=== PATIENT | female | born 1990 | race African-American/Black ===

== ENCOUNTER 2019-11-25 22:07 | Observation (INO) | payer OTHER, SELFPAY ==
[2019-11-25 22:29] VITALS: BMI 34.8
[2019-11-25 22:30] VITALS: BP 124/66; PULSE 101
--- NOTE | 2019-11-25 22:32 | OBADM ---
This patient, Kely Lott, admitted to the OB room OB Post 117 for observation. Patient/family oriented to hospital policies and general routines including ID bracelet, bed and alarms, visiting hours, pain management, procedures, bathroom and other care routines, personal items, smoking policy, room service/diet, and visiting hours. Patient/Family are encouraged to report perceived risks to care and to ask questions if they do not understand what they are told or what they should do.
[2019-11-25 22:42] VITALS: TEMP 37.1
[2019-11-26] MEDS: TERBUTALINE SULFATE 1 MG/ML VIAL 0.25 MG SUB-Q (00:06)
[2019-11-26 00:45] LABS: Add Urine Microscopic? YES; Appearance Urine Clear (Clear); Bilirubin Urine Negative (Negative); Blood Urine 1+ (Negative); Color Urine Yellow (Yellow); Glucose Urine UA 3+ mg/dL (Negative); Ketones Urine Trace mg/dL (Negative); Leukocyte Esterase Ur Trace LEU/UL (NEGATIVE); Mucus Urine Rare /lpf; Nitrate Urine Negative (Negative); Protein Urine 1+ mg/dL (Negative); RBC Urine 0-2 /hpf (0-2); Squamous Epithelial Cell Urine Occasional /hpf (Few); Urobilinogen Urine Negative mg/dL (<2.0); WBC Urine 0-3 /hpf (0-3)
--- NOTE | 2019-11-28 12:16 | P.PNOB_ITS ---
OB - Triage/Final Diagnosis Evaluation Laboratory results: Laboratory Tests 11/26/19 00:09 Urine Color Yellow Urine Appearance Clear Urine pH 6.0 Ur Specific Ramsey 1.010 Urine Protein 1+ H Urine Glucose (UA) 3+ H Urine Ketones Trace Ur Blood (Man) 1+ H Urine Nitrate Negative Urine Bilirubin Negative Urine Urobilinogen Negative Ur Leukocyte Esterase Trace H Urine RBC 0-2 Urine WBC 0-3 Ur Squamous Epith Cells Occasional Urine Mucus Rare Final Diagnosis (1) contractions: Code(s): O47.9 - False labor, unspecified Status: Acute
== END 2019-11-26 02:10 | disposition home or self-care (01) ==
PROVIDERS: Admitting Provider Obstetrics & Gynecology; Visit Provider Obstetrics & Gynecology
DX: O47.03 False labor before 37 completed weeks of gestation, third trimester (principal); Z3A.34 34 weeks gestation of pregnancy
CPT/HCPCS: 81001; 87086; 87088; 96372; G0378; G0379; J3105

== ENCOUNTER 2019-12-20 12:30 | Outpatient (CLI) | payer OTHER, SELFPAY ==
[2019-12-20 13:15] VITALS: BP 122/61; PULSE 101
[2019-12-20 13:18] LABS: Basophils Percent Auto 0.1 % (0.2-1.2); Eosinophils Percent Auto 0.4 % (0-4.4); Hemoglobin 10.5 g/dL (12.0-15.0); Immature Granulocyte Absolute 0.05 K/mm3 (0.00-0.031); Immature Granulocyte Percent A 0.7 % (0-0.5); Lymphocytes Absolute Auto 1.48 K/mm3 (0.9-3.2); Lymphocytes Percent Auto 19.5 % (18.3-44.2); Mean Corpuscular HGB Conc 31.8 g/dl (32-36); Mean Corpuscular Hemoglobin 28.2 pg (26-34); Mean Corpuscular Volume 88.5 fl (80-100); Mean Platelet Volume 10.7 fl (7.4-10.4); Monocytes Absolute Auto 0.5 K/mm3 (0.1-0.6); Monocytes Percent Auto 6.5 % (2.6-8.5); Neutrophils Absolute Auto 5.5 K/mm3 (1.3-6.7); Neutrophils Percent Auto 72.8 % (45.5-73.1); Platelet Count Result 178 k/mm3 (150-375); Red Blood Count 3.73 M/mm3 (4.2-5.4); Red Cell Distribution Width 13.8 % (11.5-14.5); White Blood Count 7.6 K/mm3 (4.5-10.0)
[2019-12-20 13:30] VITALS: BP 124/76; PULSE 92
[2019-12-20 13:30] LABS: Alanine Aminotransferase 11 U/L (4-35); Albumin Level 3.3 g/dL (3.5-5.1); Alkaline Phosphatase 105 U/L (38-126); Aspartate Amino Transferase 18 U/L (14-36); Bilirubin,Total 0.2 mg/dL (0.2-1.3); Blood Urea Nitrogen 4 mg/dL (7-17); Calcium 8.7 mg/dL (8.4-10.2); Carbon Dioxide 22 mmol/L (22-30); Chloride 104 mmol/L (98-107); Estimated Glomerular Filt Rate > 60; Glucose 92 mg/dL (65-105); Potassium 3.5 mmol/L (3.4-5.0); Sodium 136 mmol/L (137-145); Uric Acid 3.2 mg/dL (2.5-7.5)
[2019-12-20 13:31] LABS: Creatinine Urine 60.9 mg/dL; Total Protein Urine Random 36 mg/dL
[2019-12-20 13:46] VITALS: BP 128/75; PULSE 92
[2019-12-20 14:00] VITALS: BP 141/74; PULSE 92
[2019-12-20 14:11] VITALS: PULSE 83
[2019-12-20 14:15] VITALS: BP 120/77; PULSE 88
--- NOTE | 2019-12-20 14:20 | PC.NURSE ---
Dr. Prado at bedside to discuss plan of care with pt. Lab results reviewed. February D/C home.
--- NOTE | 2019-12-20 14:27 | PM.IMHP ---
H&P: HPI History of Present Illness Chief complaint: [facility] Narrative: Kely Lott is a 29 year old female. She is multiparous. She has a history of preeclampsia. She had some questionable blood pressures in the office today. She was sent over for monitoring and laboratory work. She denies any headache, blurry vision, epigastric pain. She denies any loss of fluid or vaginal bleeding. She denies any contractions. She denies any nausea, vomiting, fever, chills. She denies any chest pain shortness of breath. Review of Systems Constitutional: Constitutional: Reports no additional constitutional complaints, Denies fatigue, Denies headache(s), Denies lethargy and Denies weakness Eyes: Eyes: Reports no additional eye complaints, Denies blurry vision and Denies photophobia ENT: Reports as per HPI, Denies headache(s) and Denies neck pain Cardiovascular: Cardiovascular: Denies chest pain, Denies diaphoresis, Denies leg edema, Denies palpitations and Denies dyspnea Respiratory: Respiratory: Denies hemoptysis, Denies dyspnea and Denies wheezing Gastrointestinal: Gastrointestinal: Denies abdominal pain, Denies melena, Denies bloating, Denies hematochezia, Denies nausea and Denies vomiting Genitourinary: Genitourinary: Reports no additional female genitourinary complaints Musculoskeletal: Musculoskeletal: Denies joint swelling, Denies neck pain, Denies numbness and Denies stiffness Neurologic: Denies Abnormal speech present, Denies confusion, Denies headache(s), Denies numbness and Denies weakness Psychiatric: Psychiatric: Denies anxiety, Denies confusion, Denies depression, Denies homicidal ideation and Denies suicidal ideation Endocrine: Endocrine: Denies fatigue and Denies palpitations Allergic/Immunologic: Allergic/Immunologic: Denies wheezing PENDING SALE TO [facility] Family History Family History (Updated 12/13/19 @ 13:14 by Bradford Perry RN) Grandparent Diabetes mellitus Hypertension Mother Hypertension Father Schizophrenia Social History Social History Substance use: never Spiritual care concerns: No Meds Home Medications and Allergies Home Medications Medication Instructions Recorded Confirmed Type No Home Medications 10/11/19 11/25/19 History Allergies Allergy/AdvReac Type Severity Reaction Status Date / Time Mycobacterium Tuberculosis Allergy Mild Unknown Verified 12/13/19 13:11 (Tubercu Vital Signs Vital Signs - 24 hr 12/20/19 13:15 12/20/19 13:30 12/20/19 13:46 Pulse Rate 101 H 92 92 Blood Pressure 122/61 124/76 128/75 12/20/19 14:00 12/20/19 14:15 Pulse Rate 92 88 Blood Pressure 141/74 H 120/77 Exam Const: General: healthy appearing, comfortable and no acute distress; No confusion Orientation/consciousness: No confusion Eyes: Direct Ophthalmoscopy: No photophobia Resp: Auscultation: clear to auscultation bilaterally, no rales, no rhonchi and no wheezes Cardio: Rate: regular rate Heart sounds: no click, no murmurs and no rubs GI: Inspection: non-distended GI Palp: No abdominal tenderness Auscultation: normal bowel sounds Neuro: General: No confusion Speech: No Abnormal speech present Extrem: General: normal to inspection, no pedal edema and no calf tenderness H&P: Results Labs Labs: Short CBC 12/20/19 Range/Units 13:08 WBC 7.6 (4.5-10.0) K/mm3 Hgb 10.5 L (12.0-15.0) g/dL Hct 33.0 L (37.0-47.0) % Plt Count 178 (150-375) k/mm3 BMP 12/20/19 13:08 Sodium 136 L Potassium 3.5 Chloride 104 Carbon Dioxide 22 BUN 4 L Creatinine 0.50 L Glucose 92 Calcium 8.7 Liver Function 12/20/19 Range/Units 13:08 Total Bilirubin 0.2 (0.2-1.3) mg/dL AST 18 (14-36) U/L ALT 11 (4-35) U/L Alkaline Phosphatase 105 (38-126) U/L Albumin 3.3 L (3.5-5.1) g/dL Assessment and Plan Assessment and plan (1) History of pre-eclampsia in prior , currently in third trimester: Co
--- NOTE | 2019-12-20 15:39 | PC.NURSE ---
Addendum entered by Tangela Granda RN 12/20/19 15:41: Time for note entered [id number]. Original Note: Called Aure Carl CNM with pt status. Informed of BPs, lab results and tracing. Asked to discuss with Dr. Prado for further orders.
== END 2019-12-20 14:30 | disposition home or self-care (01) ==
LOC: ANHOBOP 12:50 → ANHOBPP 12:51
PROVIDERS: Visit Provider Advanced Practice Midwife
DX: O13.9 Gestational [pregnancy-induced] hypertension without significant proteinuria, unspecified trimester (principal); Z3A.00 Weeks of gestation of pregnancy not specified
CPT/HCPCS: 36415; 59025; 80053; 82570; 84156; 84550; 85025; 99199

== ENCOUNTER 2019-12-26 22:33 | Observation (INO) | payer OTHER, SELFPAY ==
--- NOTE | 2019-12-27 01:09 | OBADM ---
This patient, Kely Lott, admitted to the OB room Labor/Delivery/Recovery 104 for observation. Patient/family oriented to hospital policies and general routines including ID bracelet, bed and alarms, visiting hours, pain management, procedures, bathroom and other care routines, personal items, smoking policy, room service/diet, and visiting hours. Patient/Family are encouraged to report perceived risks to care and to ask questions if they do not understand what they are told or what they should do.
--- NOTE | 2020-01-17 07:56 | PM.OBTRLD ---
OB - Triage/Final Diagnosis Visit Information Date of evaluation: 12/27/19 Final Diagnosis (1) contractions: Code(s): O47.9 - False labor, unspecified Status: Acute
== END 2019-12-27 01:16 | disposition home or self-care (01) ==
PROVIDERS: Admitting Provider Obstetrics & Gynecology; Visit Provider Obstetrics & Gynecology
DX: O47.9 False labor, unspecified (principal); Z3A.00 Weeks of gestation of pregnancy not specified
CPT/HCPCS: 84112; G0378; G0379

== ENCOUNTER 2019-12-27 11:49 | Observation (INO) | payer OTHER, SELFPAY ==
--- NOTE | 2019-12-27 14:55 | LDADM ---
This patient, Kely Lott, was admitted to Labor/Delivery/Recovery 104 on 12/27/19 at 11:49. Plans for labor, pain management and were discussed with patient. Patient/family oriented to hospital policies and general routines including ID bracelet, bed and alarms, visiting hours, pain management, procedures, bathroom and other care routines, personal items, smoking policy, room service/diet and guest tray routines, infant security routines, and visiting hours. Patient/Family are encouraged to report perceived risks to care and to ask questions if they do not understand what they are told or what they should do. See OBIX for further documentation.
--- NOTE | 2019-12-29 07:21 | PM.OBTRLD ---
OB - Triage/Final Diagnosis Visit Information Reason for evaluation: threatened labor
== END 2019-12-27 14:50 | disposition home or self-care (01) ==
PROVIDERS: Admitting Provider Obstetrics & Gynecology; Visit Provider Obstetrics & Gynecology
DX: O47.1 False labor at or after 37 completed weeks of gestation (principal); Z3A.38 38 weeks gestation of pregnancy
CPT/HCPCS: 84112; G0378; G0379

== ENCOUNTER 2020-01-01 05:00 | Inpatient (IN) | payer OTHER, SELFPAY ==
[2020-01-01] VITALS (42 sets, daily range): BP systolic 87–148; BP diastolic 28–105; PULSE 64–114; RESP 16; TEMP 36.8–37.2; O2SAT 100; BMI 35.7
[2020-01-01 05:32] LABS: Basophils Percent Auto 0.1 % (0.2-1.2); Eosinophils Percent Auto 0.4 % (0-4.4); Hematocrit 34.5 % (37.0-47.0); Immature Granulocyte Absolute 0.03 K/mm3 (0.00-0.031); Immature Granulocyte Percent A 0.4 % (0-0.5); Lymphocytes Absolute Auto 1.76 K/mm3 (0.9-3.2); Lymphocytes Percent Auto 24.1 % (18.3-44.2); Mean Corpuscular HGB Conc 31.9 g/dl (32-36); Mean Corpuscular Hemoglobin 28.1 pg (26-34); Mean Platelet Volume 11.2 fl (7.4-10.4); Monocytes Absolute Auto 0.5 K/mm3 (0.1-0.6); Monocytes Percent Auto 6.6 % (2.6-8.5); Neutrophils Percent Auto 68.4 % (45.5-73.1); Platelet Count Result 196 k/mm3 (150-375); Red Blood Count 3.92 M/mm3 (4.2-5.4); Red Cell Distribution Width 14.2 % (11.5-14.5); White Blood Count 7.3 K/mm3 (4.5-10.0)
[2020-01-01] MEDS: AMPICILLIN 2 GM/NS 100 ML 2 GM/100 ML BAG IVPB (05:37)
[2020-01-01] MEDS: LACTATED RINGERS 1,000 ML 125 ML IV CONT (05:38)
--- NOTE | 2020-01-01 07:20 | P.PNAN_ITS ---
Anes - Initial Pre Proc Eval Date/Time: 01/01/20 07:20 Surgeon: Tiffany Prado MD Pre Op Diagnosis: IND Patient Data Age: 29 Gender: F Height: 5 ft 4 in Weight: 94.5 kg Last Vital Signs Pulse 90 01/01/20 07:19 BP 128/82 01/01/20 07:19 Allergies Allergy/AdvReac Type Severity Reaction Status Date / Time Mycobacterium Tuberculosis Allergy Mild Unknown Verified 12/13/19 13:11 (Tubercu Home Medications Medication Instructions Recorded Confirmed Type No Home Medications 10/11/19 11/25/19 History Laboratory Tests 01/01/20 01/01/20 01/01/20 05:19 05:19 05:19 WBC 7.3 K/mm3 K/mm3 (4.5-10.0) RBC 3.92 M/mm3 L M/mm3 (4.2-5.4) Hgb 11.0 g/dL L g/dL (12.0-15.0) Hct 34.5 % L % (37.0-47.0) MCV 88.0 fl fl (80-100) MCH 28.1 pg pg (26-34) MCHC 31.9 g/dl L g/dl (32-36) RDW 14.2 % % (11.5-14.5) Plt Count 196 k/mm3 k/mm3 (150-375) MPV 11.2 fl H fl (7.4-10.4) Immature Gran % (Auto) 0.4 % % (0-0.5) Neut % (Auto) 68.4 % % (45.5-73.1) Lymph % (Auto) 24.1 % % (18.3-44.2) [place] % (Auto) 6.6 % % (2.6-8.5) Eos % (Auto) 0.4 % % (0-4.4) Baso % (Auto) 0.1 % L % (0.2-1.2) Lymph # (Auto) 1.76 K/mm3 K/mm3 (0.9-3.2) [place] # (Auto) 0.5 K/mm3 K/mm3 (0.1-0.6) Eos # (Auto) 0.0 K/mm3 K/mm3 (0-0.3) Baso # (Auto) 0.0 K/mm3 K/mm3 (0.0-0.1) Abs Immat Gran (auto) 0.03 K/mm3 K/mm3 (0.00-0.031) Absolute Neuts (auto) 5.0 K/mm3 K/mm3 (1.3-6.7) Absolute Nucleated RBC 0.0 K/mm3 K/mm3 (0.0-0.012) Nucleated RBC % 0.0 % % (0.0-0.2) RPR Pending Blood Type O Positive Antibody Screen Negative Patient hx anesthesia problems: none Family hx anesthesia problems: none [facility] Family History Family History Grandparent Diabetes mellitus Hypertension Mother Hypertension Father Schizophrenia Social History Social History Smoking status: Never smoker Substance use: never Spiritual care concerns: No Anes - Eval Final PreProcedure Day of Procedure 01/01/20 07:20 Patient weight: obese Neurological: alert and oriented ASA classification: II Emergent: no Anesthetic plan: proceed Anesthesia type and monitoring: regional epidural and standard monitoring Informed Consent: The patient's anesthetic plan and its attendant risks and benefits were discussed with the patient/family/POA. Questions were solicited and answers provided to the satisfaction of the patient/family/POA.
--- NOTE | 2020-01-01 08:45 | WPDOBADMIT ---
Obstetrics - Admit Note Admission Note: record reviewed. No pertinent additions to the history and/or any subsequent changes in the physical findings that are not consistent with the expected course of the were found. Pt came in, in active labor, plan augmentation and AROM large amount of clear odorless fluid, SVE 8-9//-2 Additions to the history and/or subsequent changes in the physical findings follow. None.
[2020-01-01 09:23] LABS: Rapid Plasma Reagin Non-Reactive (NonReactive)
[2020-01-01] MEDS: ONDANSETRON INJ 4 MG/2 ML VIAL IV PUSH (09:28)
--- NOTE | 2020-01-01 09:43 | P.PCNOB_ITS ---
OB - Delivery Note Procedure Delivery date: 01/01/20 Intrapartal events: None Delivery augmentation: rupture of membranes and pitocin Delivery monitor: external FHT and external uterine Route of delivery: Laceration description: None Specimen: No Estimated blood loss (mL): 12 Anesthesia type: Epidural Disposition: other () [place] Baby Date of : 01/01/20 Time of : 09:30 Weeks of gestation at delivery: 39 Infant gender: Female Weight (pounds): 7 Weight (ounces): 5 presentation: vertex position: Left Occiput Anterior Placenta delivery description: Spontaneous cord vessel description: 3 Vessels score one minute: 8 score five minutes: 9 Narrative: mother and baby in stable condition
--- NOTE | 2020-01-01 13:57 | OBPPTRN ---
Patient transferred to post room #282 via W/C. Support person present. Oriented to unit, room, information board, rooming in, admission packet and security measures. Patient verbalizes understanding.
[2020-01-01] MEDS: IBUPROFEN 600 MG TABLET PO (14:26)
[2020-01-02 04:55] LABS: Hematocrit 31.5 % (37.0-47.0); Hemoglobin 10.1 g/dL (12.0-15.0)
--- NOTE | 2020-01-02 07:43 | PM.OBPNVD ---
OB - PN: Subj Subjective Date/time seen: 01/02/20 07:43 Patient comments: no complaints, pain well controlled, incisional pain, tolerating diet and flatus present OB - PN: Obj Data Labs CBC & Chem 7: 01/02/20 04:49 Labs: Laboratory Results - last 24 hr 01/01/20 01/02/20 05:19 04:49 Hgb 10.1 L Hct 31.5 L RPR Non-reactive OB - PN A/P Plan day: 1 Plan: routine care Comments: No problems, routine care Time Spent With Patient Time: Total time spent is greater than 50% in coordination of care (as documented) at patient's floor/unit and/or counseling patient: Exam Const: General: comfortable, no acute distress and alert Resp: Effort & Inspection: normal respiratory effort Auscultation: no crackles, no rales and no rhonchi Cardio: Rate: regular rate Heart sounds: no click, no murmurs and no rubs GI: Inspection: non-distended GI Palp: No Tenderness to palpation present (GI) Auscultation: normal bowel sounds Other: Incision - CDI Extrem: General: normal to inspection, no pedal edema and no calf tenderness
[2020-01-02 08:00] VITALS: BP 125/81; PULSE 76; RESP 18; TEMP 37.2; O2SAT 100
--- NOTE | 2020-01-02 08:12 | WPDANLDPN2 ---
Anes-Prog Note L&D Date/Time: 01/02/20 08:12 Comfortable throughout: labor and delivery Neuraxial method: epidural Epidural/Spinal procedure site: clean & non-tender Neuro status: Neuro function grossly intact. Cardiovascular status: normal Respiratory status: normal Airway patency: baseline Mental status: baseline Post-Op hydration status: normal Vital Signs: Last Vital Signs Temp 37.2 C 01/01/20 18:15 Pulse 74 01/01/20 18:15 Resp 16 01/01/20 18:15 BP 112/64 01/01/20 18:15 Pulse Ox 100 01/01/20 18:15 Pain score (VAS): 0/10. Patient resting up at bedside at time of assessment, appears comfortable. Post-procedural complaints: none Patient feedback: Patient satisfied with anesthetic care.
[2020-01-02] MEDS: IBUPROFEN 600 MG TABLET PO ×2 (08:15→20:50)
[2020-01-02] MEDS: DOCUSATE SODIUM 100 MG CAPSULE PO (08:15)
[2020-01-02 20:00] VITALS: BP 140/82; PULSE 64; RESP 18; TEMP 36.6; O2SAT 98
[2020-01-03] MEDS: ACETAMINOPHEN 325 MG TABLET 650 MG PO ×2 (05:35→10:21)
--- NOTE | 2020-01-03 07:49 | P.DS_ITS ---
OB - DS: Summary OB Procedures : None OB Procedures Intrapartum: Spontaneous Vag Delivery OB Procedures: : None Time Spent with Patient Time attestation: Total time spent providing and/or coordinating discharge services: Exam Const: General: comfortable Psych: Appearance: grossly normal Affect: normal affect Attitude: cooperative Thought content: Yes Normal thought content present Discharge Plan Discharge Attending physician on discharge: Tiffany Prado Discharging Clinician: Brenda Carl Patient Disposition: Home, Self-Care Activity: pelvic rest Diet: regular Patient Instructions: Antibiotic Form Stand Alone Forms: General Discharge Information Follow-up/Referrals: Brenda Carl CNM [Certified Nurse Accounting Associate] - 4 Weeks Discharge Medications: New ibuprofen 600 mg Tablet 600 mg PO Q6H PRN (Reason: Cramping) Qty: 30 RF: 0 No Action No Home Medications RF: 0 Date of admission: 01/01/20 05:00 Primary Care Provider: UNKNOWN,DOCTOR Admitting Provider: Tiffany Prado Attending physician on admission: Tiffany Prado
--- NOTE | 2020-01-03 07:49 | PM.OBPNVD ---
OB - PN: Subj Subjective Date/time seen: 01/03/20 07:49 OB - PN: Obj Data Labs CBC & Chem 7: 01/02/20 04:49 OB - PN A/P Plan day: 2 Plan: discharge home Time Spent With Patient Time: Total time spent is greater than 50% in coordination of care (as documented) at patient's floor/unit and/or counseling patient: Review of Systems Review of Systems: All systems reviewed & are unremarkable except as noted in HPI and below Exam Const: General: comfortable Resp: Effort & Inspection: normal respiratory effort Psych: Appearance: grossly normal Affect: normal affect Attitude: cooperative
[2020-01-03 08:35] VITALS: BP 122/66; PULSE 66; RESP 16; TEMP 37.2; O2SAT 97
[2020-01-03] MEDS: DOCUSATE SODIUM 100 MG CAPSULE PO (10:20)
== END 2020-01-03 12:30 | disposition home or self-care (01) | DRG 560 ==
LOC: ANHLDR 05:04 → ANHOB2 13:28
PROVIDERS: Advanced Practice Midwife; Admitting Provider Obstetrics & Gynecology; Visit Provider Obstetrics & Gynecology
DX: O62.3 Precipitate labor (principal); Z3A.39 39 weeks gestation of pregnancy; Z37.0 Single live birth
CPT/HCPCS: 36415; 85014; 85018; 85025; 86592; 86850; 86900; 86901; A9270; J0290; J2405; J2590; J2795; J7120

== ENCOUNTER 2023-08-28 08:51 | Emergency (ER) | payer OTHER, SELFPAY ==
--- NOTE | ~2023-08-28 | CT_ITS ---
EXAMINATION: CT thoracic spine wo con DATE: 08/28/2023 11:59 INDICATION: Thoracic back pain TECHNIQUE: Computed tomography (CT) of the thoracic spine was performed without intravenous contrast. The dose-length product (DLP) was 895.67 mGy-cm. Iterative reconstruction was used. COMPARISON: None FINDINGS: No fracture, dislocation, or subluxation. The vertebral body heights, alignment, and interv ertebral disc spaces are normal. The paravertebral soft tissues are unremarkable. IMPRESSION: 1. No acute osseous abnormality. Reviewed, dictated and finalized at location F.
[2023-08-28 09:07] VITALS: BP 137/86; PULSE 87; RESP 20; TEMP 36.7; O2SAT 99
[2023-08-28 09:17] VITALS: BP 121/85; PULSE 93; RESP 19; O2SAT 99
[2023-08-28] MEDS: ACETAMINOPHEN 500 MG TABLET 1000 MG PO (10:07)
[2023-08-28] MEDS: KETOROLAC (*BKC) 60 MG/2 ML VIAL IM (10:07)
[2023-08-28] MEDS: diazePAM INJ (*CRX) 10 MG/2 ML SYRINGE 2 MG IM (10:08)
[2023-08-28 10:13] VITALS: BP 156/103; PULSE 82; RESP 19; O2SAT 100
--- NOTE | 2023-08-28 10:16 | ED.BACK ---
HPI - Back Pain/Injury General Chief Complaint: Back Pain/Injury Stated Complaint: back pain Time Seen by Provider: 08/28/23 09:20 Source: patient Mode of arrival: ambulatory Limitations: no limitations History of Present Illness HPI Narrative: Patient is a 32-year-old female who presents to the ED with report of upper back pain. Patient reports she fell down the stairs 1 month ago and sustained an injury to her mid back. She had pain at that time which resolved on its own. Patient reports having recurrent pain since Wednesday of last week which became significantly worse today. She denies any new injury. She has not tried anything for the pain. States pain is slightly radiating down arms. Denies any numbness or tingling. Denies chest pain or difficulty breathing. Related Data Allergies Allergy/AdvReac Type Severity Reaction Status Date / Time Mycobacterium Tuberculosis Allergy Mild Unknown Verified 08/28/23 09:16 (Tubercu Review of Systems Review of Systems: CONSTITUTIONAL: Denies fever, chills, or sweats. CARDIOVASCULAR: Denies chest pain, palpitations, or edema. RESPIRATORY: Denies cough or dyspnea. GASTROINTESTINAL: Denies abdominal pain, nausea, vomiting. MUSCULOSKELETAL: See HPI. NEUROLOGIC: See HPI. All systems reviewed & are unremarkable except as noted in HPI and below PMFSH Family History Family History Grandparent Diabetes mellitus Hypertension Mother Hypertension Father Schizophrenia Social History Social History Smoking status: Never smoker Substance use: never Spiritual care concerns: No Exam Narrative: GENERAL: Uncomfortable appearing, well-nourished, non-toxic, in moderate acute distress due to pain. HEAD: Normocephalic, atraumatic. NECK: Supple. No adenopathy, no masses. RESPIRATORY: Airway patent, respirations nonlabored. Clear to auscultation bilaterally, no rales, rhonchi, wheezing. CARDIOVASCULAR: Regular rate and rhythm without murmurs, rubs, or gallops. Radial pulses 2+ and equal bilaterally. MUSCULOSKELETAL: Moves all extremities. Strength/ROM intact without gross deformities. No significant midline thoracic spinal tenderness. No bony deformities. Tenderness along right thoracic paraspinal musculature medial to scapular region, in area of rhomboid muscle. Sensation intact. SKIN: Warm, dry, normal color. No rashes. NEURO: A&O X3. Speech clear. Cranial nerves II-XII grossly intact. Steady gait. No ataxic movements. PSYCHIATRIC: Anxious, tearful. Normal interaction. Course Vital Signs Vital signs: Vital Signs Temperature 98.0 F 08/28/23 09:07 Pulse Rate 87 08/28/23 09:07 Respiratory Rate 20 08/28/23 09:07 Blood Pressure 137/86 08/28/23 09:07 Pulse Oximetry 99 08/28/23 09:07 Oxygen Delivery Room Air 08/28/23 09:07 Temperature 98.0 F 08/28/23 09:07 Pulse Rate 77 08/28/23 11:30 Respiratory Rate 20 08/28/23 11:30 Blood Pressure 134/100 H 08/28/23 11:30 Pulse Oximetry 99 08/28/23 11:30 Oxygen Delivery Room Air 08/28/23 09:07 MDM - Back Pain/Injury MDM Narrative Medical decision making narrative: Patient's pain is positional and localized to paraspinal muscles without signs of cord compression or cauda equina. Normal neurologic exams. No red flag symptoms. No fever noted and no significant risk factors for osteomyelitis or spinal epidural abscess. No symptoms or signs to suggest pain is referred from abdominal or source. Patient ambulates with a steady gait and is felt to be a reasonable candidate for continued outpatient management. Patient feeling much better with supportive therapy. CT thoracic spine without acute osseous abnormality. Patient will be discharged with a few muscle relaxers for further pain management. Discussed additional therapies to try at home. Patient in agreement with donnell
[2023-08-28 11:30] VITALS: BP 134/100; PULSE 77; RESP 20; O2SAT 99
[2023-08-28 12:56] VITALS: BP 140/85; PULSE 78; RESP 20; O2SAT 99
== END 2023-08-28 12:57 | disposition home or self-care (01) ==
PROVIDERS: Emergency Provider Physician Assistant
DX: S29.012A Strain of muscle and tendon of back wall of thorax, initial encounter (principal); W10.9XXA Fall (on) (from) unspecified stairs and steps, initial encounter
CPT/HCPCS: 72128; 96372; 99284; A9270; J1885; J3360